=== PATIENT | female | born 1970 | race Caucasian/White ===

== ENCOUNTER 2017-05-26 09:56 | Emergency (ER) | payer OTHER ==
[2017-05-26 10:02] VITALS: BP 138/60; PULSE 82; TEMP 98; BMI 28.5
--- NOTE | 2017-05-26 11:46 | PDOC ---
History of Present Illness - General Chief Complaint: Injury Stated Complaint: INJURY Time Seen by Provider: 05/26/17 10:36 History Source: Patient Exam Limitations: No Limitations - History of Present Illness Initial Comments: 05/26/17 11:44 CHIEF COMPLAINT: Left ankle injury HISTORY OF PRESENT ILLNESS: Patient is a 46-year-old female, no significant medical history currently on no medication reports slipping down 2 steps twisting left ankle now with swelling and bruising noted to left lateral ankle. Able to ambulate with pain. Occurred: reports: this morning Severity: Yes: moderate Lower Extremity Pain Location: left: ankle Method of Injury: Yes: twisted Modifying Factors: improves with: None Lower Ext. Injury Location - Specific Injury Location Ankle: left ecchymosis, left pain, left swelling Extremity Pain Location - Extremity Pain Location Extremity Pain Locations: left: ankle Past History - Past Medical History Allergies/Adverse Reactions: Allergies Allergy/AdvReac Type Severity Reaction Status Date / Time lactase [From [employer]] Allergy Intermediate Swelling Verified 05/26/17 10:03 Home Medications: Ambulatory Orders Ibuprofen [Motrin -] 600 mg PO QID #20 tablet 05/26/17 COPD: No - Suicide/Smoking/Psychosocial Hx Smoking History: Never smoked Have you smoked in the past 12 months: No Cigars Per Day: 0 Hx Alcohol Use: No Substance Use Type: None Review of Systems - Review of Systems Constitutional: No: Symptoms Reported Respiratory: No: Symptoms reported Cardiac (ROS): No: Symptoms Reported ABD/GI: No: Symptoms Reported : No: Symptoms Reported Musculoskeletal: Yes: Joint Pain Integumentary: Yes: Bruising (left lateral ankle), Erythema Neurological: No: Paresthesia, Tingling, Tremors All Other Systems: Reviewed and Negative *Physical Exam - Vital Signs Last Vital Signs Temp Pulse Resp BP Pulse Ox 98.0 F 82 18 138/60 100 05/26/17 09:57 05/26/17 09:57 05/26/17 09:57 05/26/17 09:57 05/26/17 09:57 - Physical Exam General Appearance: Yes: Appropriately Dressed. No: Apparent Distress Neck: negative: Tender lateral, Tender midline Respiratory/Chest: positive: Lungs Clear, Normal Breath Sounds. negative: Respiratory Distress, Accessory Muscle Use Cardiovascular: positive: Regular Rhythm, Regular Rate Extremity: positive: Normal Capillary Refill, Swelling, Erythema Integumentary: positive: Erythema, Swelling (left lateral ankle), Ecchymosis, Bruising Neurologic: positive: Alert, Normal Mood/Affect ED Treatment Course - RADIOLOGY Radiology Studies Ordered: Category Date Time Status ANKLE & FOOT-LEFT* [RAD] Stat Radiology 05/26/17 10:38 Taken Medical Decision Making - Medical Decision Making 05/26/17 11:45 A/P: Patient with left lateral ankle injury, sent to xray. 05/26/17 12:16 X-ray demonstrates left lateral ankle edema with slightly widened mortise. Apply Mathieu wrap and Aircast, Motrin for pain, ice and elevate when at rest, follow-up with orthopedics in one week if pain persists. *DC/Admit/Observation/Transfer Diagnosis at time of Disposition: Ankle injury Qualifiers: Encounter type: initial encounter Laterality: left Qualified Code(s): S99.912A - Unspecified injury of left ankle, initial encounter - Discharge Dispostion Disposition: HOME Condition at time of disposition: Stable Admit: No - Prescriptions Prescriptions: Ibuprofen [Motrin -] 600 mg PO QID #20 tablet - Referrals Referrals: Devyn Rendon MD [Primary Care Provider] - Christian Hernandez MD [Staff Physician] - - Patient Instructions Printed Discharge Instructions: DI for Ankle Sprain Additional Instructions: 1. Please return to the emergency department with any redness, swelling, increased pain, or any other concerns. 2. Keep splint on for stability 3. Please follow up in the office of Dr. Hernandez within a week if pain persists. 4. No weightbearing 5. Ice and elevate when at rest. 6. Motrin for pain - Post Discharge Activity Forms/Work/School Notes: Back to Work
== END 2017-05-26 12:25 | disposition home or self-care (01) ==
LOC: JERFT 09:56
PROC: 2W3RX1Z Immobilization of Left Lower Leg using Splint (ICD-10-PCS; principal; 2017-05-26)
DX: S99.812A Other specified injuries of left ankle, initial encounter (principal); W10.8XXA Fall (on) (from) other stairs and steps, initial encounter; Y93.89 Activity, other specified; Y92.89 Other specified places as the place of occurrence of the external cause; Y99.8 Other external cause status
CPT/HCPCS: 73610-TC-LT-FY; 73630-TC-LT; 99281-25